=== PATIENT | male | born 1990 | race Two or more races ===

== ENCOUNTER 2022-08-30 15:59 | Emergency (ER) | payer MEDICAID ==
[~2022-08-30] VITALS: Ht 188 cm; Wt 81.8 kg
[2022-08-30 16:05] VITALS: BP 129/93
[2022-08-30] MEDS ORDERED: normal saline 1000ML IV soln IVB ONE (16:05)
[2022-08-30] MEDS ORDERED: NALO4SPR BOTHNARES (17:40)
[2022-08-30] MEDS ORDERED: ondansetron 4mg rapidly disintigrating tab PO ONE (18:25)
== END 2022-08-30 18:40 | disposition home or self-care (01) ==
LOC: ER 16:00
DX: T50.7X1A Poisoning by analeptics and opioid receptor antagonists, accidental (unintentional), initial encounter (principal); R41.82 Altered mental status, unspecified; Y92.89 Other specified places as the place of occurrence of the external cause; Z59.00 Homelessness unspecified; Z56.0 Unemployment, unspecified
CPT/HCPCS: 96360; 99283; J7030

== ENCOUNTER 2022-09-03 13:22 | Emergency (ER) | payer MEDICAID ==
[~2022-09-03 13:22] MED LIST: NALO4SPR BOTHNARES
[2022-09-03] MEDS ORDERED: NALO4SPR BOTHNARES (13:48)
[2022-09-03 14:54] VITALS: BP 127/77
== END 2022-09-03 14:59 | disposition home or self-care (01) ==
LOC: ER 13:22
DX: T40.411A Poisoning by fentanyl or fentanyl analogs, accidental (unintentional), initial encounter (principal); R40.0 Somnolence; F17.200 Nicotine dependence, unspecified, uncomplicated; F12.90 Cannabis use, unspecified, uncomplicated; F19.90 Other psychoactive substance use, unspecified, uncomplicated; Z72.89 Other problems related to lifestyle; Z59.00 Homelessness unspecified; Z56.0 Unemployment, unspecified; Z79.899 Other long term (current) drug therapy; Y92.89 Other specified places as the place of occurrence of the external cause
CPT/HCPCS: 99283